=== PATIENT | female | born 1950 | race Caucasian/White ===

== ENCOUNTER 2019-08-18 15:23 | Inpatient (IN) | payer OTHER, MEDICARE ==
--- NOTE | 2019-08-18 16:38 | RAD REPORT ---
EXAM DESCRIPTION: CT - Stone Protocol - 08/18/2019 4:24 pm CLINICAL HISTORY: Abdominal pain. COMPARISON: 2011 TECHNIQUE: Computed axial tomography of the abdomen pelvis was obtained without oral or IV contrast. Lack of IV and oral contrast limits evaluation of solid organs, bowel, and vessels. Coronal reformat shayne images were obtained and reviewed. All CT scans are performed using dose optimization technique as appropriate and may include automated exposure control or mA/KV adjustment according to patient size. FINDINGS: Tiny nonobstructing left renal calculus. 7 millimeter calculus right kidney. No hydronephr osis. A ureteral calculus is not seen. No bladder calculus The liver, spleen, pancreas and adrenals appear grossly normal There is no evidence of diverticulitis. Cholecystectomy Hysterectomy IMPRESSION: Nonobstructing bilateral renal calculi
[2019-08-18 16:41] LABS: Urine Bacteria <20 /HPF (<20); Urine Culture Reflex Order NOT NEEDED; Urine RBC <5 /HPF (NONE SEEN)
[2019-08-18 16:59] LABS: Absolute Lymphocytes (CBC) 2.4 K/uL (0.7-4.9); Basophils % 0.9 % (0-1.3); Hematocrit 26.7 % (36.0-45.0); Lymphocytes % 24.7 % (15.3-44.8); MPV 7.5 fL (7.6-11.3); RBC Red Blood Cell Count 3.09 M/uL (3.86-4.86)
[2019-08-18 17:12] LABS: Urine Blood NEGATIVE (NEG); Urine Glucose NEGATIVE (NEG); Urine Protein NEGATIVE (NEG); Urine Specific Gravity 1.005 (1.005-1.030); Urine pH 5.5 (5.0-7.0)
[2019-08-18 17:12] LABS: Albumin 3.7 g/dL (3.4-5.0); Bilirubin Direct 0.1 mg/dL (0-0.2); Bilirubin Total 0.3 mg/dL (0.2-1.0); Potassium 3.6 mmol/L (3.5-5.1); Protein, Total 7.8 g/dL (6.4-8.2)
--- NOTE | 2019-08-18 17:23 | ER ---
Nurse's Notes [facility] Name: Alicia Miller Age: 69 yrs Sex: Female : 1950 Arrival Date: 08/18/2019 Time: 15:24 Bed 14 Private MD: Diagnosis: Acute Kidney Injury Presentation: 08/18 15:28 Presenting complaint: Patient states: my creatinine and bun are off, i had blood work tw2 done Wednesday, i have been having kidney stones and the doctor is thinking i have blockage. Transition of care: patient was not received from another setting of care. Onset of symptoms was August 18, 2019. Risk Assessment: Do you want to hurt yourself or someone else? Patient reports no desire to harm self or others. Initial Sepsis Screen: Does the patient meet any 2 criteria? No. Patient's initial sepsis screen is negative. Does the patient have a suspected source of infection? No. Patient's initial sepsis screen is negative. Care prior to arrival: None. 15:28 Method Of Arrival: Ambulatory tw2 15:28 Acuity: MARINA 3 tw2 Triage Assessment: 15:33 General: Appears in no apparent distress. Behavior is calm, cooperative, appropriate tw2 for age. Pain: Denies pain. Historical: - Allergies: 15:32 No Known Allergies; tw2 - Home Meds: 15:32 Glipizide Oral [Active]; glucazil otc [Active]; lorazepam 0.5 mg Oral tab [Active]; tw2 milk thistle 500 mg oral cap [Active]; - PMHx: 15:32 fatty liver; Diabetes - NIDDM; Kidney stones; tw2 - PSHx: 15:32 Cholecystectomy; Hysterectomy; b/l mastectomy; lymphectomy; tw2 - Immunization history:: Adult Immunizations. - Social history:: Smoking status: . - Ebola Screening: : Patient denies travel to an Ebola-affected area in the 21 days before illness onset. Screenin:00 Fall Risk IV access (20 points). ca1 17:07 Abuse screen: Denies threats or abuse. Denies injuries from another. Nutritional ca1 screening: No deficits noted. Tuberculosis screening: No symptoms or risk factors identified. Assessment: 16:00 General: Appears in no apparent distress. comfortable, Behavior is calm, cooperative, ca1 appropriate for age. Pain: Denies pain. Neuro: Level of Consciousness is awake, alert, obeys commands, Oriented to person, place, time, situation. Cardiovascular: Heart tones S1 S2 present Capillary refill < 3 seconds Patient's skin is warm and dry. Respiratory: Airway is patent Respiratory effort is even, unlabored, Respiratory pattern is regular, symmetrical, Breath sounds are clear bilaterally. GI: Abdomen is flat, non-distended, Bowel sounds present X 4 quads. Abd is soft and non tender X 4 quads. : No deficits noted. No signs and/or symptoms were reported regarding the genitourinary system. EENT: No deficits noted. No signs and/or symptoms were reported regarding the EENT system. Derm: Skin is intact, is healthy with good turgor, Skin is pink, warm \T\ dry. Musculoskeletal: Circulation, motion, and sensation intact. Capillary refill < 3 seconds, Range of motion: intact in all extremities. 17:08 Reassessment: Patient appears in no apparent distress at this time. Patient and/or ca1 family updated on plan of care and expected duration. Pain level reassessed. Patient is alert, oriented x 3, equal unlabored respirations, skin warm/dry/pink. 17:44 Reassessment: Patient appears in no apparent distress at this time. Patient and/or ca1 family updated on plan of care and expected duration. Pain level reassessed. Patient is alert, oriented x 3, equal unlabored respirations, skin warm/dry/pink. Pending room assignment. 17:55 Reassessment: Dr. Sotelo at bedside. ca1 18:15 Reassessment: Dr. Carlisle at bedside. ca1 18:25 Reassessment: Patient appears in no apparent distress at this time. Patient is alert, ca1 oriented x 3, equal unlabored respirations, skin warm/dry/pink. Vital Signs: 15:28 BP 174 / 93; Pulse 113; Resp 17; Temp 98.1(O); Pulse Ox 100% on R/A; Weight 60.78 kg tw2 (R); Height 5 ft. 0 in. (152.40 cm); Pain 0/10; 17:08 BP 138 / 68; Pulse 98; Resp 17 S; Pulse Ox 100% on R/A; ca1 18:09 BP 157 / 101; Pulse 100; Resp 17 S; Pulse Ox 100% on R/A; ca1 15:28 Body Mass Index 26.17 (60.78 kg, 152.40 cm) tw2 ED Course: 15:24 Patient arrived in ED. as 15:28 Triage completed. tw2 15:33 Arm band placed on. tw2 15:42 Yoel Davis PA is PHCP. [facility] 15:42 Ricci Joseph MD is Attending Physician. jmm 16:00 Patient has correct armband on for positive identification. Placed in gown. Bed in low ca1 position. Call light in reach. Side rails up X 1. Pulse ox on. NIBP on. Warm blanket given. 16:10 Khadijah Boo, RN is Primary Nurse. ca1 16:25 CT Stone Protocol In Process Unspecified. EDMS 16:30 No provider procedures requiring assistance completed. Inserted saline lock: 22 gauge ca1 in right antecubital area, using aseptic technique. 16:45 Initial lab(s) drawn, by labor relations teacher, sent to lab. ca1 17:22 Rusty Carlisle MD is Hospitalizing Provider. [facility] 18:10 Patient admitted, IV remains in place. ca1 Administered Medications: No medications were administered Outcome: 17:22 Decision to Hospitalize by Provider. [facility] 18:10 Admitted to Tele accompanied by tech, via wheelchair, room 404, Report called to ca1 MISAEL Pepe 18:10 Condition: stable 18:10 Instructed on the need for admit. 18:27 Patient left the ED. ca1 Signatures: Dispatcher [employer] EDMS Yoel Davis PA PA jmm Martinez, Amelia as Jyotsna Hall RN RN tw2 Khadijah Boo RN RN ca1
--- NOTE | 2019-08-18 17:23 | EDPHYS ---
Physician Documentation [facility] Name: Alicia Miller Age: 69 yrs Sex: Female : 1950 Arrival Date: 08/18/2019 Time: 15:24 Bed 14 Private MD: ED Physician Ricci Joseph HPI: 08/18 15:45 This 69 yrs old Female presents to ER via Ambulatory with complaints of jmm Abnormal Lab Results. 15:45 The patient complains of pain in the left flank and right flank. The pain radiates to m the abdomen. Onset: The symptoms/episode began/occurred at an unknown time. Modifying factors: The symptoms are alleviated by nothing. the symptoms are aggravated by nothing. Associated signs and symptoms:. This is a 69 year old female with a history of dm, kidney stones that presents to the ED with complaints of flank pain which has been ongoing since July. patient was evaluated by dr schwartz for a ureteral stone. Patient states over the past week having decreased appetite. Was seen by pcp and notified of abnormal labs. Visited with Dr. Rodas whom advised the patient to go to the ED for further evaluation. . Historical: - Allergies: 15:32 No Known Allergies; tw2 - Home Meds: 15:32 Glipizide Oral [Active]; glucazil otc [Active]; lorazepam 0.5 mg Oral tab [Active]; tw2 milk thistle 500 mg oral cap [Active]; - PMHx: 15:32 fatty liver; Diabetes - NIDDM; Kidney stones; tw2 - PSHx: 15:32 Cholecystectomy; Hysterectomy; b/l mastectomy; lymphectomy; tw2 - Immunization history:: Adult Immunizations. - Social history:: Smoking status: . - Ebola Screening: : Patient denies travel to an Ebola-affected area in the 21 days before illness onset. ROS: 15:45 Cardiovascular: Negative for chest pain, palpitations, and edema, Respiratory: Negative jm for shortness of breath, cough, wheezing, and pleuritic chest pain. 15:45 Constitutional: Positive for malaise. 15:45 Abdomen/GI: Positive for abdominal pain, nausea. 15:45 Back: Positive for flank pain. 15:45 All other systems are negative. Exam: 15:45 Head/Face: atraumatic. Eyes: EOMI, no conjunctival erythema appreciated ENT: Moist [facility] Mucus Membranes Neck: Trachea midline, Supple Chest/axilla: Normal chest wall appearance and motion. Cardiovascular: Regular rate and rhythm. No edema appreciated Respiratory: Normal respirations, no respiratory distress appreciated 15:45 Skin: General appearance color normal MS/ Extremity: Moves all extremities, no obvious deformities appreciated, no edema noted to the lower extremities Neuro: Awake and alert, normal gait Psych: Behavior is normal, Mood is normal, Patient is cooperative and pleasant 15:45 Constitutional: The patient appears in no acute distress, alert, awake. 15:45 Abdomen/GI: Inspection: abdomen appears normal, Bowel sounds: normal, Palpation: abdomen is soft and non-tender, in all quadrants. 15:45 Back: CVA tenderness, is absent. Vital Signs: 15:28 BP 174 / 93; Pulse 113; Resp 17; Temp 98.1(O); Pulse Ox 100% on R/A; Weight 60.78 kg tw2 (R); Height 5 ft. 0 in. (152.40 cm); Pain 0/10; 17:08 BP 138 / 68; Pulse 98; Resp 17 S; Pulse Ox 100% on R/A; ca1 18:09 BP 157 / 101; Pulse 100; Resp 17 S; Pulse Ox 100% on R/A; ca1 15:28 Body Mass Index 26.17 (60.78 kg, 152.40 cm) tw2 MDM: 15:45 Patient medically screened. [facility] 17:19 Data reviewed: vital signs, nurses notes. Counseling: I had a detailed discussion with [facility] the patient and/or guardian regarding: the historical points, exam findings, and any diagnostic results supporting the discharge/admit diagnosis, lab results, radiology results, the need for further work-up and treatment in the hospital. ED course: I discussed the patient with Dr. Carlisle whom accepted patient. . 08/18 16:09 Order name: Basic Metabolic Panel; Complete Time: 17:14 [facility] 08/18 16:09 Order name: CBC with Diff; Complete Time: 17:07 [facility] 08/18 16:09 Order name: Creatinine for Radiology; Complete Time: 17:14 [facility] 08/18 16:09 Order name: Hepatic Function; Complete Time: 17:14 [facility] 08/18 16:09 Order name: Lipase; Complete Time: 17:14 [facility] 08/18 16:09 Order name: Urine Microscopic Only; Complete Time: 16:42 [facility] 08/18 16:09 Order name: Urine Culture [facility] 08/18 16:09 Order name: CT Stone Protocol; Complete Time: 16:47 [facility] 08/18 16:29 Order name: Urine Dipstick--Ancillary (enter results); Complete Time: 17:14 eb 08/18 17:36 Order name: Complement C3 [facility] 08/18 17:37 Order name: Complement C4 [facility] 08/18 17:37 Order name: SERA IFA Screen w/Reflex [facility] 08/18 17:37 Order name: C-ANCA Anti-Proteinase 3 [facility] 08/18 17:37 Order name: P-ANCA Anti-Myeloperoxidase Ab [facility] 08/18 16:09 Order name: IV Saline Lock; Complete Time: 16:38 [facility] 08/18 16:09 Order name: Labs collected and sent; Complete Time: 16:38 [facility] 08/18 16:09 Order name: Urine Dipstick-Ancillary (obtain specimen); Complete Time: 16:27 [facility] Administered Medications: No medications were administered Disposition: 08/18/19 17:22 Hospitalization ordered by Rusty Carlisle for Inpatient Admission. Preliminary diagnosis is Acute Kidney Injury. - Bed requested for Telemetry/MedSurg (Inpatient). - Status is Inpatient Admission. ca1 - Condition is Stable. - Problem is new. - Symptoms are unchanged. UTI on Admission? Yes Addendum: 08/22/2019 06:31 Co-signature as Attending Physician, Ricci Joseph MD I agree with the assessment and k dr plan of care. Signatures: Dispatcher [employer] Ricci Santiago MD MD [facility] Yoel Davis PA PA [facility] Jyotsna Hall, RN RN tw2 Kait Quintero Khadijah Boo, RN RN ca1 Corrections: (The following items were deleted from the chart) 08/18 18:02 17:22 Hospitalization Ordered by Rusty Carlisle MD for Inpatient Admission. Preliminary diagnosis is Acute Kidney Injury. Bed requested for Telemetry/MedSurg (Inpatient). Status is Inpatient Admission. Condition is Stable. Problem is new. Symptoms are unchanged. UTI on Admission? Yes. [facility] 18:27 18:02 08/18/2019 17:22 Hospitalization Ordered by Rusty Carlisle MD for Inpatient ca1 Admission. Preliminary diagnosis is Acute Kidney Injury. Bed requested for Telemetry/MedSurg (Inpatient). Status is Inpatient Admission. Condition is Stable. Problem is new. Symptoms are unchanged. UTI on Admission? Yes. eb
[2019-08-18] MEDS ORDERED: NA CHLORIDE 0.9% 1,000 ML IV SCH (18:16)
[2019-08-18] MEDS ORDERED: ONDANSETRON 4 MG/2 ML VIAL IV PRN (18:16)
[2019-08-18] MEDS ORDERED: ACETAMINOPHEN 500 MG TAB PO PRN (18:16)
[2019-08-18 19:22] LABS: Urine Appearance HAZY; Urine Bilirubin NEGATIVE (NEG); Urine Color YELLOW; Urine Glucose NEGATIVE (NEG); Urine Specific Gravity 1.005 (1.005-1.030)
[2019-08-18 19:23] LABS: Urine Bacteria <20 /HPF (<20); Urine Blood NEGATIVE (NEG); Urine Culture Reflex Order REFLEXED; Urine Microscopic Reflex ORDER UMIC; Urine Mucus 2+ /HPF (NONE SEEN); Urine Protein NEGATIVE (NEG); Urine RBC <5 /HPF (NONE SEEN); Urine Urobilinogen 0.2 mg/dL (0.2-1.0); Urine pH 5.5 (5.0-7.0)
[2019-08-18] MEDS: INSULIN -REGULAR HUMAN 50 UNIT/0.5 ML ML SQ SCH (21:00)
--- NOTE | 2019-08-18 21:09 | P.CNS ---
Date of Consult: 08/18/19 Reason for Consult: EDIN Requesting Physician: Rusty Carlisle Chief Complaint: EDIN History of Present Illness: 69 yo WF DM presented to the ER with several days of moderate, persistent BL flank pain in the setting of nephrolithiasis complicated by EDIN. No alleviating factors. No excessive NSAIDs. She last took NSAIDs in July for two days. No difficulty emptying her bladder. Follows with Dr. Howe for CKD. 15:45 This 69 yrs old Female presents to ER via Ambulatory with complaints of Abnormal Lab Results. 15:45 The patient complains of pain in the left flank and right flank. The pain radiates to jmm the abdomen. Onset: The symptoms/episode began/occurred at an unknown time. Modifying factors: The symptoms are alleviated by nothing. the symptoms are aggravated by nothing. Associated signs and symptoms:. This is a 69 year old female with a history of dm, kidney stones that presents to the ED with complaints of flank pain which has been ongoing since July. patient was evaluated by dr schwartz for a ureteral stone. Patient states over the past week having decreased appetite. Was seen by pcp and notified of abnormal labs. Visited with Dr. Rodas whom advised the patient to go to the ED for further evaluation. Allergies No Known Allergies Allergy (Verified 08/19/19 03:38) Home medications list reviewed: Yes Home Medications: Cetirizine HCl [Zyrtec*] 10 mg PO DAILY PRN 08/19/19 Cyclosporine [Restasis] 1 drops EACH EYE DAILY 08/19/19 LORazepam [Ativan*] 0.5 mg PO BEDTIME PRN 08/19/19 Levothyroxine [Synthroid] 0.025 mcg PO DAILY 08/19/19 Milk Thistle Seed Extract [Milk Thistle] 1,000 mg PO DAILY 08/19/19 glipiZIDE [Glipizide] 10 mg PO BID 08/19/19 - Past Medical/Surgical History Diabetic: Yes -: Nephrolithiasis -: Hysterectomy -: Cholecystectomy - Family History Mother Medical History: Other (see notes) Notes: dementia Brother Medical History: Diabetes - Social History CD- Drugs: No Caffeine use: Yes Place of Residence: Home Review of Systems 10-point ROS is otherwise unremarkable Gastrointestinal: Abdominal Pain Physical Examination Temp Pulse Resp BP Pulse Ox 98.4 F 105 H 18 150/80 H 100 08/18/19 19:00 08/18/19 19:00 08/18/19 19:00 08/18/19 19:00 08/18/19 19:00 General: Oriented x3, Cooperative HEENT: Atraumatic, Normocephalic Neck: Supple Respiratory: Clear to auscultation bilaterally Cardiovascular: No edema, Regular rate/rhythm Gastrointestinal: Soft and benign, Non-distended Musculoskeletal: No clubbing, No contractures Integumentary: No rashes, No cyanosis Neurological: Normal speech Lymphatics: No axilla or inguinal lymphadenopathy Laboratory Data (last 24 hrs) 08/18/19 16:50: Creatinine 4.87 H 08/18/19 16:50: WBC 9.8, Hgb 9.4 L, Hct 26.7 L, Plt Count 615 H 08/18/19 16:50: Sodium 139, Potassium 3.6, BUN 59 H, Creatinine 4.83 H, Glucose 138 H, Total Bilirubin 0.3, AST 12 L, ALT 17, Alkaline Phosphatase 126 H, Lipase 440 H Imagings Data: EXAM DESCRIPTION: CT - Stone Protocol - 08/18/2019 4:24 pm CLINICAL HISTORY: Abdominal pain. COMPARISON: 2011 TECHNIQUE: Computed axial tomography of the abdomen pelvis was obtained without oral or IV contrast. Lack of IV and oral contrast limits evaluation of solid organs, bowel, and vessels. Coronal reformatted images were obtained and reviewed. All CT scans are performed using dose optimization technique as appropriate and may include automated exposure control or mA/KV adjustment according to patient size. FINDINGS: Tiny nonobstructing left renal calculus. 7 millimeter calculus right kidney. No hydronephrosis. A ureteral calculus is not seen. No bladder calculus The liver, spleen, pancreas and adrenals appear grossly normal There is no evidence of diverticulitis. Cholecystectomy. Hysterectomy IMPRESSION: Nonobstructing bilateral renal calculi Conclusions/Impression: A/ EDIN of unclear etiology. Chronic nephrolithiasis. DM II with CKD. HTN with CKD. Anemia in chronic illness. P/ Continue current POC and Medications. Change IVF 1/2NS. Give potassium 20meq. Renal labs ordered. No NSAIDs. AM labs. Daily weight. Thank you kindly for the consultation. Case reviewed with Dr. Carlisle.
[2019-08-18] MEDS ORDERED: POTASSIUM CL SA 10 MEQ TAB PO ONE (21:29)
[2019-08-18] MEDS: carvediloL 6.25 MG TAB PO SCH (23:41)
[2019-08-18] MEDS: NACHLORIDE 0.45% 1,000 ML IV SCH (23:43)
[2019-08-19 01:11] VITALS: BMI 26.2
--- NOTE | 2019-08-19 04:21 | HP ---
Date of Admission: 08/18/2019 Primary Care Physician: Rosy Marina. Consultants: Dr. Sotelo with Nephrology. Chief Complaint: Abnormal labs, generalized malaise. Code Status: Full. History Of Present Illness: Patient is a 69-year-old female with past medical history of diabetes, f atty liver disease, history of breast cancer, and kidney stones, who was in her usual state of health until July, had some recent stones, did not have any obstructive uropathy, had progressive genera lized malaise, not having any appetite, not drinking well, was seen by her kidney doctor and was foun d to have abnormal labs with a creatinine of over 4. She was referred to the ER. In the ER, patient 's creatinine was 4.87. WBC count was normal. Hemoglobin was 9.4. CT scan of the abdomen showed 7 mm stone in the right kidney. No hydronephrosis. No ureteral calculus or bladder calculus and a tin y stone on the left side, which is also nonobstructing. Patient was then referred for admission. Past Medical History: Diabetes mellitus type 2, fatty liver disease, breast cancer on the left, stat us post bilateral mastectomy, history of kidney stones. Surgical History: Hysterectomy, cholecystectomy, bilateral mastectomy, lymphadenectomy, , c ataract surgery. Allergies: NO KNOWN DRUG ALLERGIES. Medications: List reviewed. Social History: Patient denies any recent tobacco use or alcohol use. Patient did smoke and drink e xtensively in the past. Patient has a daughter. Independent in her activities of daily living. Sta ys at home. Does not use any assistive ambulatory devices. Family History: No premature coronary artery disease in the family. Father in a motor vehicle accident. Review of Systems: Ten-point system reviewed, negative except as per HPI. Physical Examination: Vital Signs: Blood pressure 174/93, heart rate 113, respirations 17, temperature 98.1, O2 100% on ro om air. General: Awake, alert, oriented x3. Elderly female, in some mild distress, ill appearing. HEENT: Normocephalic, atraumatic. PERRLA. EOMI. Dry mucous membranes. Oropharynx is clear. Poor dentition. Conjunctivae anicteric. Neck: Supple. No JVD. Trachea midline. CV: S1, S2. Sinus tachycardia. Peripheral pulses present. No murmurs. Respiratory: Moving air well bilaterally. No wheezing or stridor. No use of accessory muscles. Gastrointestinal: Abdomen is soft, nontender, nondistended. Positive bowel sounds. No guarding or rigidity. Extremities: No clubbing, cyanosis, or edema. No calf tenderness. Neurologic: Cranial nerves 2 through 12 intact grossly. No focal neurological deficit. Speech is n ormal. Strength is symmetric bilateral upper and lower extremities. Sensation intact to light touch . Skin: No rashes. Normal skin turgor. Psychiatric: Mood is okay. Affect is full. Insight and judgment are good. Laboratory Data: WBC 9.8, H and H 9.4 and 26.7, platelets 615. Sodium 139, potassium 3.6, chloride 104, CO2 of 27, BUN 59, creatinine 4.83, glucose 138, calcium 9.7. UA, 1+ leukocyte esterase, less t wright 5 rbc's, 5-10 wbc's, 5-10 squamous epithelial cells, less than 20 bacteria. Imaging Studies: CT scan of the abdomen shows nonobstructing bilateral renal calculi. Assessment: 69-year-old female with: 1.Acute kidney injury. Creatinine is 4.87, baseline is normal. Electrolytes are within normal limi ts. Does have elevated BUN. No need for emergent dialysis at this time. Patient is making urine. CT scan does not show any obstructive uropathy. Does have bilateral kidney stones, may have passed a recent stone. We will consult Nephrology. Patient was seen by Dr. Howe in our office today. Arnold Sotelo is covering. Will avoid NSAIDs and nephrotoxins. Start on IV fluids and monitor kidney f unction. Patient denied any significant NSAID use, not on metformin. 2.Bilateral kidney stones, nonobstructive. 3.Fatty liver disease. 4.Diabetes mellitus type 2 with hyperglycemia. We will start on sliding scale insulin and monitor b lood glucose levels. We will check hemoglobin A1c. 5.History of breast cancer, status post bilateral mastectomy. 6.Insomnia. Patient does use alprazolam at bedtime. 7.Deep vein thrombosis prophylaxis. Lovenox renally dosed. Plan: Admit patient to Med-Surg, place as inpatient. Length of stay greater than 2 midnights. FABRICE Voice ID: [id number]
[2019-08-19 05:10] LABS: Urine Appearance CLEAR; Urine Bilirubin NEGATIVE (NEG); Urine Blood TRACE (NEG); Urine Color YELLOW; Urine Glucose NEGATIVE (NEG); Urine Protein NEGATIVE (NEG); Urine Urobilinogen 0.2 mg/dL (0.2-1.0)
[2019-08-19 05:18] LABS: UR MICROALBUMIN 1.9 mg/dL (< 1.9)
[2019-08-19 05:50] LABS: Urine Bacteria <20 /HPF (<20); Urine Culture Reflex Order REFLEXED; Urine RBC <5 /HPF (NONE SEEN); Urine Urothelial Cells <5 /HPF (NONE SEEN)
[2019-08-19 06:10] LABS: Absolute Lymphocytes (CBC) 3.1 K/uL (0.7-4.9); Basophils % 0.6 % (0-1.3); Hematocrit 26.9 % (36.0-45.0); Lymphocytes % 26.7 % (15.3-44.8); MPV 7.8 fL (7.6-11.3)
[2019-08-19 06:28] LABS: Albumin 3.6 g/dL (3.4-5.0); Bilirubin Total 0.3 mg/dL (0.2-1.0); Magnesium 2.2 mg/dL (1.8-2.4); Phosphorus 2.7 mg/dL (2.5-4.9); Potassium 3.9 mmol/L (3.5-5.1); Protein, Total 7.5 g/dL (6.4-8.2); Uric Acid 6.8 mg/dL (2.6-6.0)
[2019-08-19] MEDS: INSULIN -REGULAR HUMAN 50 UNIT/0.5 ML ML SQ SCH ×4 (07:30→21:00)
[2019-08-19] MEDS: NACHLORIDE 0.45% 1,000 ML IV SCH ×3 (08:10→16:33)
[2019-08-19] MEDS: carvediloL 6.25 MG TAB PO SCH ×2 (08:12→21:21)
[2019-08-19] MEDS ORDERED: ENOXAPARIN 30 MG/0.3 ML SQ SCH (09:00)
[2019-08-19] MEDS ORDERED: CETIRIZINE HCL 5 MG TABLET PO PRN (11:15)
[2019-08-19] MEDS ORDERED: LORAZEPAM 0.5 MG TABLET PO PRN (11:15)
--- NOTE | 2019-08-19 15:35 | PN ---
Date of Progress Note: 08/19/2019 Subjective: Patient seen and examined. Chart reviewed and case discussed with RN and Dr. Sotelo as well as Dr. Howe. Patient is doing better this morning, still not much of an appetite. No vomi ting. Medications reviewed. Physical Examination: Vital Signs: Temperature 96.9, heart rate 84, blood pressure 118/67, respirations 16, O2 98% on room air. General: Awake, alert and oriented x3, not in any acute distress. Elderly female, somewhat il l appearing. CV: S1, S2. Regular rate and rhythm. Peripheral pulses present. Respiratory: Moving air well bilaterally. No wheezing or stridor. No use of accessory muscles. Gas trointestinal: Abdomen is soft, nontender, nondistended. Positive bowel sounds. No guarding or rig idity. Extremities: No clubbing, cyanosis, or edema. Neurologic: Nonfocal. Laboratory Data: Sodium 140, potassium 3.9, chloride 106, CO2 of 26, BUN 60, creatinine 4.72, glucos e 82. Hemoglobin A1c is 5.9%. Uric acid is 6.8, calcium 9, phosphorus 2.7, magnesium 2.2, AST 10, A LT 17, alkaline phosphatase 120. WBC 11.7, H and H 9.5 and 26.9, platelets 575. Immunology panel is pending. Urine culture growing out mixed landry. Assessment And Plan: A 69-year-old female with: 1.Acute kidney injury, not significantly improved from yesterday. We will continue with IV fluids, unclear etiology, may be related to acute tubular necrosis from decreased oral intake. Workup is pen ding. 2.Bilateral kidney stones, nonobstructive. 3.Fatty liver disease. 4.Diabetes mellitus type 2 with hyperglycemia. Hemoglobin A1c is 5.9%. We will continue to monitor sliding scale. Monitor glucose levels and continue sliding scale insulin. 5.History of breast cancer, status post bilateral mastectomy. 6.Insomnia. Continue alprazolam p.r.n. at bedtime. 7.Deep venous thrombosis prophylaxis with Lovenox, renally dosed. SA/MODL Voice ID: [id number] Report ID: [id number]
--- NOTE | 2019-08-19 20:49 | P.PN ---
Date of Service: 08/19/19 Vital Signs Temp Pulse Resp BP Pulse Ox 97.0 F 86 17 124/62 100 08/19/19 16:00 08/19/19 16:00 08/19/19 16:00 08/19/19 16:00 08/19/19 16:00 Medications Acetaminophen (Tylenol -Extra Strength) 500 mg PO Q4HP PRN PRN Reason: Pain scale 2-4 (Mild) Stop: 09/17/19 18:17 Carvedilol (Coreg) 6.25 mg PO BID [facility] Stop: 09/17/19 22:01 Last Admin: 08/19/19 08:12 Dose: 6.25 mg Cetirizine HCl (Zyrtec) 10 mg PO DAILY PRN PRN Reason: ALLERGIES Stop: 09/18/19 11:16 Enoxaparin Sodium (Lovenox 30 Mg Inj) 30 mg SQ DAILY [facility] Stop: 09/18/19 09:01 Last Admin: 08/19/19 08:10 Dose: 30 mg Home Med (Cyclosporine [Restasis]) 1 drops EACH EYE DAILY [facility] Stop: 09/19/19 09:01 Sodium Chloride (Sodium Chloride 0.45%) 1,000 mls @ 125 mls/hr IV .Q8H [facility] Stop: 09/17/19 22:01 Last Admin: 08/19/19 16:33 Dose: 1,000 mls Insulin Human Regular (Novolin -R) 0 unit SQ ACHS [facility]; Protocol Stop: 09/17/19 21:01 Last Admin: 08/19/19 16:30 Dose: Not Given Levothyroxine Sodium (Synthroid) 0.05 mg PO DAILYAC [facility] Stop: 09/19/19 06:31 Lorazepam (Ativan) 0.5 mg PO BEDTIME PRN PRN Reason: sleep Stop: 09/18/19 11:16 Ondansetron HCl (Zofran) 4 mg IV Q4H PRN PRN Reason: NAUSEA / VOMITING Stop: 09/17/19 18:17 Sodium Chloride (Normal Saline Flush) 10 ml IV BID [facility] Stop: 09/17/19 21:01 Last Admin: 08/19/19 08:11 Dose: 10 ml Microbiology Results 08/18/19 16:24 Clean Catch Urine [place] Count - Preliminary <10,000 CFU/ML. 08/18/19 16:24 Clean Catch Urine - Preliminary MIXED [place]. Assessment/ Plan: Nephrology Feeling better today. Still with some abdominal twinges. CPS stable without CP or SOB. No acute events overnight. Vitals, medications, blood work and imaging reviewed in the chart. General: Oriented x3, Cooperative HEENT: Atraumatic, Normocephalic Neck: Supple Respiratory: Clear to auscultation bilaterally Cardiovascular: No edema, Regular rate/rhythm Gastrointestinal: Soft and benign, Non-distended Musculoskeletal: No clubbing, No contractures Integumentary: No rashes, No cyanosis Neurological: Normal speech Lymphatics: No axilla or inguinal lymphadenopathy Laboratory Data (last 24 hrs) 08/18/19 16:50: Creatinine 4.87 H 08/18/19 16:50: WBC 9.8, Hgb 9.4 L, Hct 26.7 L, Plt Count 615 H 08/18/19 16:50: Sodium 139, Potassium 3.6, BUN 59 H, Creatinine 4.83 H, Glucose 138 H, Total Bilirubin 0.3, AST 12 L, ALT 17, Alkaline Phosphatase 126 H, Lipase 440 H Imagings Data: EXAM DESCRIPTION: CT - Stone Protocol - 08/18/2019 4:24 pm CLINICAL HISTORY: Abdominal pain. COMPARISON: 2011 TECHNIQUE: Computed axial tomography of the abdomen pelvis was obtained without oral or IV contrast. Lack of IV and oral contrast limits evaluation of solid organs, bowel, and vessels. Coronal reformatted images were obtained and reviewed. All CT scans are performed using dose optimization technique as appropriate and may include automated exposure control or mA/KV adjustment according to patient size. FINDINGS: Tiny nonobstructing left renal calculus. 7 millimeter calculus right kidney. No hydronephrosis. A ureteral calculus is not seen. No bladder calculus The liver, spleen, pancreas and adrenals appear grossly normal There is no evidence of diverticulitis. Cholecystectomy. Hysterectomy IMPRESSION: Nonobstructing bilateral renal calculi Conclusions/Impression: A/ EDIN of unclear etiology. FENa consistent with ATN. Chronic nephrolithiasis. DM II with CKD. HTN with CKD. Anemia in chronic illness. P/ Continue current POC and Medications. Continue IVF 1/2NS. Renal labs pending. No NSAIDs. AM labs. Daily weight.
[2019-08-20] MEDS: NACHLORIDE 0.45% 1,000 ML IV SCH ×3 (00:56→13:59)
[2019-08-20 05:28] LABS: Absolute Lymphocytes (CBC) 2.7 K/uL (0.7-4.9); Basophils % 0.7 % (0-1.3); Lymphocytes % 29.9 % (15.3-44.8); MPV 7.3 fL (7.6-11.3); RBC Red Blood Cell Count 2.72 M/uL (3.86-4.86)
[2019-08-20 05:46] LABS: Bilirubin Total 0.3 mg/dL (0.2-1.0); Protein, Total 6.3 g/dL (6.4-8.2)
[2019-08-20 05:59] LABS: Uric Acid 6.3 mg/dL (2.6-6.0)
[2019-08-20] MEDS ORDERED: LEVOTHYROXINE SOD 0.05 MG TABLET PO SCH (06:30)
[2019-08-20] MEDS: INSULIN -REGULAR HUMAN 50 UNIT/0.5 ML ML SQ SCH ×2 (07:30→11:28)
[2019-08-20 07:41] VITALS: O2SAT 97
[2019-08-20] MEDS: carvediloL 6.25 MG TAB PO SCH (08:36)
[2019-08-20] MEDS ORDERED: CYCLOSPORINE EACH EYE SCH (09:00)
[2019-08-20 12:39] VITALS: BP 122/61; TEMP 97.4
[2019-08-20] MEDS ORDERED: EPOETIN ALFA 20,000 UNIT/1 ML VIAL SQ SCH (13:15)
--- NOTE | 2019-08-20 13:38 | P.PN ---
Date of Service: 08/20/19 Vital Signs Temp Pulse Resp BP Pulse Ox 97.4 F 87 17 122/61 98 08/20/19 12:00 08/20/19 12:00 08/20/19 12:00 08/20/19 12:00 08/20/19 12:00 Medications Acetaminophen (Tylenol -Extra Strength) 500 mg PO Q4HP PRN PRN Reason: Pain scale 2-4 (Mild) Stop: 09/17/19 18:17 Carvedilol (Coreg) 6.25 mg PO BID [facility] Stop: 09/17/19 22:01 Last Admin: 08/20/19 08:36 Dose: 6.25 mg Cetirizine HCl (Zyrtec) 10 mg PO DAILY PRN PRN Reason: ALLERGIES Stop: 09/18/19 11:16 Enoxaparin Sodium (Lovenox 30 Mg Inj) 30 mg SQ DAILY [facility] Stop: 09/18/19 09:01 Last Admin: 08/19/19 08:10 Dose: 30 mg Epoetin Juwan (Procrit) 20,000 unit SQ 1X [facility] Stop: 09/19/19 13:16 Home Med (Cyclosporine [Restasis]) 1 drops EACH EYE DAILY [facility] Stop: 09/19/19 09:01 Sodium Chloride (Sodium Chloride 0.45%) 1,000 mls @ 125 mls/hr IV .Q8H [facility] Stop: 09/17/19 22:01 Last Admin: 08/20/19 08:35 Dose: 1,000 mls Insulin Human Regular (Novolin -R) 0 unit SQ ACHS [facility]; Protocol Stop: 09/17/19 21:01 Last Admin: 08/20/19 11:28 Dose: Not Given Levothyroxine Sodium (Synthroid) 0.05 mg PO DAILYAC [facility] Stop: 09/19/19 06:31 Last Admin: 08/20/19 06:26 Dose: 0.05 mg Lorazepam (Ativan) 0.5 mg PO BEDTIME PRN PRN Reason: sleep Stop: 09/18/19 11:16 Last Admin: 08/19/19 21:20 Dose: 0.5 mg Ondansetron HCl (Zofran) 4 mg IV Q4H PRN PRN Reason: NAUSEA / VOMITING Stop: 09/17/19 18:17 Sodium Chloride (Normal Saline Flush) 10 ml IV BID [facility] Stop: 09/17/19 21:01 Last Admin: 08/20/19 08:36 Dose: Not Given Microbiology Results 08/18/19 16:24 Clean Catch Urine [place] Count - Final <10,000 CFU/ML. 08/18/19 16:24 Clean Catch Urine - Final MIXED [place]. Assessment/ Plan: Nephrology Doing well. CPS stable without CP or SOB. Good urine output. No acute events overnight. Vitals, medications, blood work and imaging reviewed in the chart. General: Oriented x3, Cooperative HEENT: Atraumatic, Normocephalic Neck: Supple Respiratory: Clear to auscultation bilaterally Cardiovascular: No edema, Regular rate/rhythm Gastrointestinal: Soft and benign, Non-distended Musculoskeletal: No clubbing, No contractures Integumentary: No rashes, No cyanosis Neurological: Normal speech Lymphatics: No axilla or inguinal lymphadenopathy Laboratory Data (last 24 hrs) 08/18/19 16:50: Creatinine 4.87 H 08/18/19 16:50: WBC 9.8, Hgb 9.4 L, Hct 26.7 L, Plt Count 615 H 08/18/19 16:50: Sodium 139, Potassium 3.6, BUN 59 H, Creatinine 4.83 H, Glucose 138 H, Total Bilirubin 0.3, AST 12 L, ALT 17, Alkaline Phosphatase 126 H, Lipase 440 H Imagings Data: EXAM DESCRIPTION: CT - Stone Protocol - 08/18/2019 4:24 pm CLINICAL HISTORY: Abdominal pain. COMPARISON: 2011 TECHNIQUE: Computed axial tomography of the abdomen pelvis was obtained without oral or IV contrast. Lack of IV and oral contrast limits evaluation of solid organs, bowel, and vessels. Coronal reformatted images were obtained and reviewed. All CT scans are performed using dose optimization technique as appropriate and may include automated exposure control or mA/KV adjustment according to patient size. FINDINGS: Tiny nonobstructing left renal calculus. 7 millimeter calculus right kidney. No hydronephrosis. A ureteral calculus is not seen. No bladder calculus The liver, spleen, pancreas and adrenals appear grossly normal There is no evidence of diverticulitis. Cholecystectomy. Hysterectomy IMPRESSION: Nonobstructing bilateral renal calculi Conclusions/Impression: A/ EDIN of unclear etiology. FENa consistent with ATN. Chronic nephrolithiasis. DM II with CKD. HTN with CKD. Anemia in chronic illness. P/ Continue current POC and Medications. Continue IVF 1/2NS. Give a dose of Procrit today. Renal labs pending. No NSAIDs. AM labs PRN. Daily weight. Case reviewed with Dr. Carlisle, the daughter and the patient. Plan for discharge today. Will follow up with Dr. Howe in approximately one week with blood work. Restart home medications. Send home with Coreg that was initiated in the hospital. Maintain good hydration and avoid all NSAIDs.
--- NOTE | 2019-08-20 15:52 | PN ---
Date of Progress Note: 08/20/2019 Subjective: Patient is seen and examined, chart was reviewed, and case was discussed with RN. No ac yennifer events overnight. Patient does report urinary frequency. She has history of incontinence. Medication List: Reviewed. Physical Examination: Vital Signs: Temperature 97.1, heart rate 86, blood pressure 129/62, respirations 17, O2 99% on room air. General: Awake, alert, oriented x3. Elderly female, not in any acute distress. CV: S1, S2. Regular rate and rhythm. Peripheral pulses present. Respiratory: Moving air well bilaterally. No wheezing or stridor. Gastrointestinal: Abdomen is sof t, nontender, nondistended. Positive bowel sounds. Extremities: No clubbing, cyanosis, or edema. Neurologic: Nonfocal. Laboratory Data: Sodium 139, potassium 4, chloride 109, CO2 23, BUN 58, creatinine 4.62, glucose 107 , uric acid 6.3, calcium 8.6. Lipase 368. Protein electrophoresis is pending. WBC 9.2, H and H 8.3 and 24, platelets 489. Urine culture: Mixed landry. Assessment: A 69-year-old female with: 1.Acute kidney injury. Creatinine is still above 4, likely due to acute tubular necrosis. Apprecia te Dr. Sotelo's input. Workup is still pending. May need biopsies if workup is negative. Electrol ytes are stable. No significant fluid retention. Doubt need for emergent dialysis. 2.Bilateral nephrolithiasis, nonobstructive. 3.Fatty liver disease. 4.Diabetes mellitus type 2 with hyperglycemia, stable. We will continue to monitor blood glucose le vels. Continue sliding scale insulin. 5.History of breast cancer, status post bilateral mastectomy. 6.Insomnia, on benzodiazepines p.r.n. at bedtime. 7.Elevated uric acid level. 8.Deep venous thrombosis prophylaxis with Lovenox, renally dosed. Plan: Follow up with immunology studies. Protein electrophoresis. Continue DVT prophylaxis. Sanam nue IV fluids. Possible renal biopsy if workup is negative. We will discuss further with Nephrology . SA/MODL Voice ID: [id number] Report ID: [id number]
[2019-08-22 20:14] LABS: Immunoglobulin A 169 mg/dL (20-320); Immunoglobulin G 928 mg/dL (600-1540); Immunoglobulin M 55 mg/dL (50-300)
[2019-08-23 00:16] LABS: Alpha-1-Globulins 0.4 g/dL (0.2-0.3); Alpha-2-Globulins 0.8 g/dL (0.5-0.9); Gamma Globulins 0.8 g/dL (0.8-1.7); INTERPRETATION REPORT
== END 2019-08-20 15:37 | disposition home or self-care (01) | DRG 682 ==
LOC: ER 15:23 → ERHOLD 17:31 → 4TH 18:16
PROVIDERS: ADMIT Family Medicine; ATTEND Family Medicine
DX: I12.9 Hypertensive chronic kidney disease with stage 1 through stage 4 chronic kidney disease, or unspecified chronic kidney disease (principal); N17.0 Acute kidney failure with tubular necrosis; N20.0 Calculus of kidney; K76.0 Fatty (change of) liver, not elsewhere classified; E11.65 Type 2 diabetes mellitus with hyperglycemia; Z85.3 Personal history of malignant neoplasm of breast; G47.00 Insomnia, unspecified; E11.22 Type 2 diabetes mellitus with diabetic chronic kidney disease; N18.9 Chronic kidney disease, unspecified
CPT/HCPCS: 36415; 74176; 76377; 80048; 80053; 80076; 81001; 81003; 81015; 82043; 82570; 82784; 82947; 83036; 83520; 83690; 83735; 84100; 84165; 84300; 84550; 85025; 86021; 86038; 86160; 86334; 87086; 87088; 94760; 99285; J1650; J7030; Q4081

== ENCOUNTER 2020-08-21 05:48 | Day surgery (SDC) | payer OTHER, MEDICARE ==
[2020-08-14 09:53] LABS: Absolute Lymphocytes (CBC) 2.4 K/uL (0.7-4.9); Basophils % 0.8 % (0-1.3); Hematocrit 36.4 % (36.0-45.0); Lymphocytes % 27.8 % (15.3-44.8); MPV 7.6 fL (7.6-11.3); RBC Red Blood Cell Count 4.07 M/uL (3.86-4.86)
[2020-08-14 09:56] LABS: Protime INR 0.97
[2020-08-14 10:06] LABS: Potassium 4.3 mmol/L (3.5-5.1)
--- NOTE | 2020-08-14 10:13 | RAD REPORT ---
EXAM DESCRIPTION: RAD - Chest Pa And Lat (2 Views) - 08/14/2020 9:57 am CLINICAL HISTORY: PRE OP Chest pain. COMPARISON: Abdomen 1 View (KUB) dated 07/06/2019; Abdomen 1 View (KUB) dated 02/07/2018; Abdomen 1 Vie w (KUB) dated 02/08/2017; Abdomen 1 View (KUB) dated 02/03/2017 FINDINGS: The lungs are clear. The heart is normal in size. No displaced fractures. Left axillary no omaira dissection clips. Cholecystectomy clips. IMPRESSION: No acute or concerning finding suspected.
--- OUTSIDE RECORDS SUMMARY | 2020-08-21 05:51 | XMS REPORT | Continuity of Care Document ---
:1950 Author Organization [facility] Care Team Providers Name Role Phone [facility] Unavailable Un available Problems Problem Status Onset Classification Date Comments Sourc e Date Reported Carpal tunnel Active Problem 03/10/2020 Misch er syndrome Neuro (disorder) Medications No Data Provided for This Section Allergies, Adverse Reactions, Alerts Substance Category Reaction Severity Reaction Status Date Comments S ource type Reported sulfa drugs Assertion Drug Active Mi liliana allergy Neuro codeine Assertion Drug Active Mische r allergy Neuro Cipro Assertion Drug Active Mische r allergy Neuro Flagyl Assertion Drug Active Mische r allergy Neuro Ceclor Assertion Drug Active Mische r allergy Neuro Immunizations No Data Provided for This Section Results No Data Provided for This Section Pathology Reports No Data Provided for This Section Diagnostic Reports No Data Provided for This Section Consultation Notes No Data Provided for This Section Discharge Summaries No Data Provided for This Section History and Physicals No Data Provided for This Section Vital Signs No Data Provided for This Section Encounters Location Location Encounter Encounter Reason Attending ADM MO Stat Source Details Type Number For Provider Date Date Visit Outpatient [id number] Robin 03/08 Active [facility] [place] [facility] Outpatient [id number] [place] 03/08 03/09 [facility] Neurology [place] /2019 Neur o [place] Procedures No Data Provided for This Section Assessment and Plan No Data Provided for This Section Plan of Care No Data Provided for This Section Social History Social History Date Source No data available for this 03/09/2020 [facility] section Family History No Data Provided for This Section Advance Directives No Data Provided for This Section Functional Status No Data Provided for This Section
--- OUTSIDE RECORDS SUMMARY | 2020-08-21 05:51 | XMS REPORT ---
:[address] [facility] Address [address], [facility] [address] [place] [address] Care Team Providers Name Role Phone Issac Unavailable [phone] PROBLEMS Type Condition ICD9-CM [id number] Onset Condition SNOMED Code Notes Code Code Dates Status Problem Nontraumatic M75.121 Active 7913506471204055 complete tear of right rotator cuff ALLERGIES Allergen (clinical drug Drug/Non Drug Allergy Reaction Allergy Type Onset Date Status ingredient) documented on EMR morphine Morphine Sulfate([facility] Unknown Drug Allergy Ac tive Code:[address]-61) ENCOUNTERS from 1950 to 2020-07-11 Encounter Location Date Provider Diagnosis [facility] [address] Jul, Iftikhar Davenport [facility] [address] [place], [place] M25.511 ; [id number] Nontraumatic co mplete tear of right r otator cuff M75.121 ; Bicipital tendi nitis of right should er M75.21 and Impingement syn drome of right should er M75.41 IMMUNIZATIONS No Information SOCIAL HISTORY Tobacco Use: Social History Observation Description Date Details (start date - stop date) Never Smoker Sex Assigned At : Social History Observation Description Sex Assigned At Unknown Alcohol Screen Question Answer Notes Did you have a drink containing alcohol in the past Yes year? Points 1 Interpretation Negative How often did you have 6 or more drinks on one Never (0 poin ts) occasion in the past year? How many drinks did you have on a typical day when 1 or 2 (0 points) you were drinking in the past year? How often did you have a drink containing alcohol in Monthly or less (1 point) the past year? Tobacco Use/Smoking Question Answer Notes Are you a never smoker Additional Findings: Tobacco Non-User Current non-smoker REASON FOR REFERRAL No Information VITAL SIGNS Height 60 in Jul, Weight 144.8 lbs Jul, BMI 28.28 kg/m2 Jul, Blood pressure systolic 162 mm Hg Jul, Blood pressure diastolic 94 mm Hg Jul, MEDICATIONS Medication SIG (Take, Route, Start Date End Date Status Frequency, Duration) Selenium Active Ondansetron Not-Taking Restasis Active Tamsulosin HCl Not-Taking Lutein Active Feosol Active Lorazepam Not-Taking Magnesia Active GlipiZIDE Active Levothyroxine Sodium Not-Fletcher ing Alive Once Daily Womens 50+ Active Milk Thistle Active Carvedilol Not-Taking PROCEDURES No Information RESULTS No Results REASON FOR VISIT NEW PT: RT SHOULDER PAIN MEDICAL (GENERAL) HISTORY Type Description Date Medical History DM Medical History HTN Medical History HLD Medical History renal failure Medical History HT Medical History hx of breast cancer Surgical History appendectomy Surgical History c sections Surgical History left foot Surgical History gallbbladder Surgical History hystrectomy Surgical History breast surgery cancer Goals Section No Information Health Concerns No Information MEDICAL EQUIPMENT No Information MENTAL STATUS No Information FUNCTIONAL STATUS No Information ASSESSMENTS Encounter Date Diagnosis Notes Jul, Impingement syndrome of right shoulder ( ICD-10 - M75.41) Jul, Bicipital tendinitis of right shoulder ( ICD-10 - M75.21) Jul, Nontraumatic complete tear of right rota tor cuff (ICD-10 - M75.121) Jul, Pain in joint of right shoulder (ICD-10 - M25.511) PLAN OF TREATMENT Treatment Notes Assessment Notes Clinical Notes Nontraumatic complete tear of I discussed with the patient a t right rotator cuff length her diagnosis and treatment plan and she expressed understanding. We discussed both operative and nonoperative treatment. She has failed conservative treatment measures including corticosteroid injections and physical therapy. Given her pain and difficulty with ADLs, we will proceed with right shoulder arthroscopic rotator cuff repair with possible biceps tenotomy and subacromial decompression. I discussed with the patient risks and benefits associated with the procedure at length as well as postoperative rehabilitation and she expressed understanding. We will schedule the surgery in mid August per her request. Treatment Notes Test Name Order Date X-RAY EXAM SHOULDER 2 VIEWS ([id number]) 2020-07-11 Next Appt Details 4 Weeks Reason: Insurance Providers Payer Name Payer Address Payer Insured Patient Coverage Cover age Phone Name Relationship to Start Date End Date Insured MEDICARE Attn Part B [id number] Alicia Miller [facility] Claims [address] [facility] [address] [facility] [address] [phone] Alicia Miller [place] [address] K [phone]
--- OUTSIDE RECORDS SUMMARY | 2020-08-21 05:51 | XMS REPORT | Continuity of Care Document ---
:1950 Author Organization [facility] t Address [facility] [address]e [address] [place] [address] Care Team Providers Name Role Phone Sy [place] Attending Clinician Problems Condition Condition Condition Status Onset Resolution Last Treating Co mments Source Name Details Category Date Date Treatment Clinician Date Carpal Problem Active 2020-03-10 Memor ia tunnel 23:53:45 l syndrome Carpal Federico n (disorder) tunnel syndrome (disorder) Active Problem 03/10/2020 [facility] Allergies, Adverse Reactions, Alerts Allergy Allergy Status Severity Reaction(s) Onset Inactive Treating Comm ents Source Name Type Date Date Clinician sulfa sulfa Active [facility] drugs l [place] codeine codeine Active [facility] [place] Cipro Cipro Active [facility] [place] Flagyl Flagyl Active [facility]oria [facility] [place] Ceclor Ceclor Active [facility]oria [facility] [place] Social History Social Habit Start Date Stop Date Quantity Comments Source Social History 2020-03-09 2020-03-09 [facility] camacho 04:59:59 04:59:59 Medications This patient has no known medications. Procedures This patient has no known procedures. Encounters Start End Encounter Admission Attending Care Care Encounter Source Date/Time Date/Time Type Type Clinicians Facility Department ID 2020-08-13 2020-08-13 Outpatient [facility] [id number] [facility] 2020-07-08 2020-07-08 Outpatient [facility] [id number] [facility] 2020-03-08 2020-03-08 [place] [facility] [id number] 08:15:00 23:59:59 Robin 00 Sy Results This patient has no known results.
--- OUTSIDE RECORDS SUMMARY | 2020-08-21 05:51 | XMS REPORT ---
:1950 Author Organization [facility] Address [address], [facility] [address] [place] [address] Care Team Providers Name Role Phone Issac Unavailable [phone] PROBLEMS Type Condition ICD9-CM [id number] Onset Condition SNOMED Code Notes Code Code Dates Status Problem Nontraumatic M75.121 Active [id number] complete tear of right rotator cuff ALLERGIES Allergen (clinical drug Drug/Non Drug Allergy Reaction Allergy Type Onset Date Status ingredient) documented on EMR morphine Morphine Sulfate([facility] Unknown Drug Allergy Ac tive Code:[address]-74) ENCOUNTERS from 1950 to 2020-08-14 Encounter Location Date Provider Diagnosis [facility] [address] Aug, Iftikhar Davenport [facility] [address] [place], [place] M25.[address] ; [id number] Nontraumatic co mplete tear of right r [...] No Information VITAL SIGNS Height 60 in Aug, Weight 144 lbs Aug, Temperature 97.3 degrees Fahrenheit Aug, BMI 28.12 kg/m2 Aug, Blood pressure systolic 122 mm Hg Aug, Blood pressure diastolic 82 mm Hg Aug, MEDICATIONS Medication SIG (Take, Route, Start Date End Date Status Frequency, Duration) Restasis Active Levothyroxine Sodium Not-Fletcher ing GlipiZIDE Active Carvedilol Not-Taking Ondansetron Not-Taking Selenium Active Milk Thistle Active Lorazepam Not-Taking Feosol Active Lutein Active Magnesia Active Tamsulosin HCl Not-Taking Chlordiazepoxide-Clidinium A ctive Alive Once Daily Womens 50+ Active PROCEDURES No Information RESULTS No Results REASON FOR VISIT F/U RT SHOULDER - DISCUSS SURGEY 08/14/2020. MEDICAL (GENERAL) HISTORY Type Description Date Medical [...] No Information ASSESSMENTS Encounter Date Diagnosis Notes Aug, Impingement syndrome of right shoulder ( ICD-10 - M75.41) Aug, Bicipital tendinitis of right shoulder ( ICD-10 - M75.21) Aug, Nontraumatic complete tear of right rota tor cuff (ICD-10 - M75.121) Aug, Pain in joint of right shoulder (ICD-10 [...] rehabilitation and she expressed understanding. We will proceed with surgery next week. She will followup one week postop. Next Appt Details 1 week postop Reason: Provider Name:Iftikhar Davenport, 2020-08-26 0 1:00:00 PM, [address], [address], [place], [address], Insurance Providers Payer Name Payer Address Payer Insured Patient Coverage Cover age Phone Name Relationship to Start Date End Date Insured MEDICARE Attn Part B [id number] Alicia Miller [facility] Claims [address] [facility] [address] AAR [address] [phone] Alicia Miller [facility] [id number] [phone]
--- OUTSIDE RECORDS SUMMARY | 2020-08-21 06:08 | XMS REPORT | Continuity of Care Document ---
:1950 Author Organization [facility] Care Team Providers Name Role Phone [facility] Unavailable Un available Problems Problem Status Onset [...] Number For Provider Date Date Visit Outpatient [id number] Robin 03/08 Active [facility] [place] MNA Outpatient [id number] [place] 03/08 03/09 [facility] Neurology [place] /2019 Neur o [place] Procedures No Data Provided for This Section [...]
--- OUTSIDE RECORDS SUMMARY | 2020-08-21 06:08 | XMS REPORT | Continuity of Care Document ---
:1950 Author Organization [facility] t Address [facility] [address] [place] [address] Care Team Providers Name Role Phone Sy [...] l [place] Flagyl Flagyl Active [facility] [place] Ceclor Ceclor Active [facility] [place] Social History Social Habit Start Date Stop Date Quantity Comments Source Social History 2020-03-09 2020-03-[address] [facility] camacho 04:59:59 04:59:59 Medications This patient has no known medications. Procedures This patient has no known procedures. Encounters Start End Encounter Admission Attending Care Care Encounter Source Date/Time Date/Time Type Type Clinicians Facility Department ID 2020-08-13 2020-08-13 Outpatient [facility] [id number] [facility] 2020-07-08 2020-07-08 Outpatient [facility] [id number] [facility] 2020-03-08 2020-03-[address] [place] [facility] [id number] 08:15:00 23:59:59 Robin 00 Sy Results This patient has no known results.
[2020-08-21] MEDS ORDERED: ROPLVACAINE HCL 40 ML ONE (06:30)
[2020-08-21] MEDS ORDERED: NS 0.9% VIAL 10 ML ONE ×3 (06:30→09:05)
[2020-08-21] MEDS ORDERED: LIDOCAINE 2% MPF 5 ML VIAL ONE ×2 (06:30→08:32)
[2020-08-21] MEDS ORDERED: dexAMETHasone 10 MG/ML VIAL ONE ×2 (06:30→08:32)
[2020-08-21] MEDS ORDERED: NA CHLORIDE 0.9% 1,000 ML ONE (06:41)
[2020-08-21] MEDS ORDERED: CEFAZOLIN/SWI 1gm 1 GM/10 ML SYR ONE (06:41)
[2020-08-21] MEDS ORDERED: EPINEPHRINE/PF 1 MG/ML AMP ONE (07:00)
[2020-08-21] MEDS ORDERED: Ringers Lactate 1,000 ML IV ONE (08:28)
[2020-08-21] MEDS ORDERED: MIDAZOLAM HCL 2 MG/2 ML INJ ONE (08:32)
[2020-08-21] MEDS ORDERED: propofoL 200 MG/20 ML VIAL IV ONE (08:32)
[2020-08-21] MEDS ORDERED: ROCURONIUM 50 MG/5 ML VIAL IV ONE (08:32)
[2020-08-21] MEDS ORDERED: EPHEDRINE SULF 50 MG/ML VIAL ONE (08:32)
[2020-08-21] MEDS ORDERED: Phenylephrine HCl 10 MG/ML 1 ML VIAL ONE (08:32)
[2020-08-21] MEDS ORDERED: ONDANSETRON 4 MG/2 ML VIAL ONE (08:32)
[2020-08-21] MEDS ORDERED: FENTANYL CITR 100 MCG/2 ML ONE (08:32)
[2020-08-21] MEDS ORDERED: KETOROLAC 30 MG/ML INJ ONE (08:32)
--- NOTE | 2020-08-21 09:34 | P.BOP ---
Preoperative diagnosis: right rotator cuff tear, impingement syndrome, biceps tendinitis Postoperative diagnosis: same, right shoulder SLAP tear Primary procedure: right shoulder arthroscopic rotator cuff repair Secondary procedure: right shoulder arthroscopic SLAP debridement with biceps tenotomy Other procedure(s): right shoulder arthroscopic subacromial decompression Legal Secretary Receptionist: NONE,NONE Estimated blood loss: 5 cc Specimen: none Findings: see dictation Anesthesia: General Complications: None Implants: 1- 5.5 mm arthrex corkscrew, 2- 4.75 mm arthrex swivelocks Fluids & blood products: per anesthesia record Transferred to: Recovery Room Condition: Good
[2020-08-21] MEDS: MEPERIDINE HCL 25 MG/ML SYR ONE ×2 (09:35→09:45)
[2020-08-21] MEDS ORDERED: DIPHENHYDRAMINE 50 MG/ML VIAL ONE (10:05)
[2020-08-21] MEDS: LABETALOL 20 MG/4ML SYRINGE IV ONE ×4 (10:10→11:45)
--- NOTE | 2020-08-21 10:15 | RAD REPORT ---
EXAM DESCRIPTION: RAD - Shoulder 1 View - 08/21/2020 10:08 am FINDINGS: Single postoperative AP view of the shoulder was obtained. No fracture or dislocation. AC joint degenerative change present with inferiorly directed spurring. No suspicious or unexpected finding.
[2020-08-21] MEDS ORDERED: LABETALOL 20 MG/4ML SYRINGE IV ONE (11:43)
[2020-08-21] MEDS ORDERED: HYDROCODONE/APAP 7.5/325 MG TAB ONE (12:55)
[2020-08-21 14:26] VITALS: BP 154/72; TEMP 97.9; O2SAT 97
--- NOTE | 2020-08-26 19:00 | OP ---
Date of Procedure: 08/21/2020 Surgeon: Iftikhar Davenport MD Preoperative Diagnoses: 1.Right shoulder rotator cuff tear. 2.Right shoulder impingement syndrome. 3.Right shoulder bicipital tenosynovitis. Postoperative Diagnoses: 1.Right shoulder rotator cuff tear. 2.Right shoulder impingement syndrome. 3.Right shoulder bicipital tenosynovitis. 4.Right shoulder SLAP tear. Procedure Performed: 1.Right shoulder arthroscopic rotator cuff repair. 2.Right shoulder arthroscopic SLAP tear debridement with biceps tenotomy. 3.Right shoulder arthroscopic subacromial decompression. Anesthesia: General. Fluids: Per Anesthesia record. Estimated Blood Loss: 5 cc. Complications: None. Implants: 1.A 5.5 mm Arthrex corkscrew. 2.A 4.75 mm Arthrex SwiveLock. Indication Of Procedure: Alicia is a 70-year-old female who presented to my clinic with signs, symptom s, and MRI findings consistent with right shoulder rotator cuff tear and bicipital tenosynovitis. Th e patient had significant pain and difficulty with activities of daily living. I discussed with the patient at length risks and benefits associated with operative and nonoperative treatment, and she ex pressed understanding and elected to proceed with operative treatment. Description Of Procedure: After informed consent was obtained, the patient was identified in the pre operative holding area. The right upper extremity was marked. The patient was then taken to the PAC U where she underwent a right-sided interscalene block to her right upper extremity for postoperative pain control. She was then taken to the operating room, transferred to the operating table in supin e fashion, and placed under general anesthesia. She was then placed in the beach chair position with her extremities well padded. The right upper extremity was then prepped and draped in usual sterile fashion. A time-out was initiated. The correct patient and procedure were confirmed and identified . The patient did receive preoperative prophylactic antibiotics. A standard posterior portal was cr eated after injecting the shoulder joint with 30 cc of normal saline via the posterior portal positio n. A posterior portal was created and arthroscope was brought in via the posterior portal position. A standard anterior portal was then created and then under visualization, a cannula was placed. Kayla gnostic arthroscopy was performed. The patient was noted to have a type 2 SLAP tear with significant fraying of the superior labrum. An arthroscopic shaver was then used to perform a SLAP tear debride ment to smooth stable borders. There was significant fraying of the biceps tendon anchor as well as hyperemia of the biceps tendon consistent with significant bicipital tenosynovitis. The biceps tenot poonam was then performed using meniscal biters. The labrum was again debrided at the biceps tendon anc hor using arthroscopic shaver. Anterior and posterior labrums were found to be stable to probe with no significant tear. The subscapularis was also noted to be intact with no significant tearing. The re were no loose bodies found within the axillary pouch. No significant chondromalacia noted on the humeral head. The patient was noted to have a full-thickness tear of the anterior supraspinatus. It was noted intra-articularly via arthroscopy. A standard lateral portal was created and obturator wa s brought into the shoulder joint consistent with a full-thickness tear. The undersurface of the rot ator cuff tear was then debrided using an arthroscopic shaver. The arthroscope was then brought to t he subacromial space and a subacromial bursectomy was performed using the arthroscopic shaver. The f ull-thickness rotator cuff tear was then identified. Again, it was reducible using 2-0 pituitary gra sper. The greater tuberosity was then debrided to a bleeding bony bed to aid with healing of the rep air. A single 5.5 mm Arthrex corkscrew was placed, which was double loaded. The sutures were then p assed through the rotator cuff tear in anterior to posterior fashion and horizontal mattress fashion. They were tied for good overall medial row fixation. The sutures were then placed in crisscross fa shion to 2 lateral row anchors using 4.75 mm Arthrex corkscrews to complete the rotator cuff repair. There was good overall repair and reduction of the rotator cuff onto the greater tuberosity. The re maining sutures were then cut. The undersurface of the acromion was then debrided using radiofrequen cy ablator and arthroscopic shaver. The patient did have some fraying of the coracoacromial ligament consistent with significant impingement syndrome. The subacromial decompression and acromioplasty w ere performed using a radiofrequency ablator as well as an arthroscopic jorge luis. Arthroscopic instrumen ts were then removed without complication. The wounds were then irrigated thoroughly with normal kati ine. Subcutaneous tissue was approximated using a 2-0 Vicryl and portals were approximated using a 3 -0 Monocryl. Sterile dressings were applied. The patient was awakened and transferred to PACU in st able condition. Postoperative Plan: The patient will be nonweightbearing of her right upper extremity, will be in a shoulder immobilizer, and will begin physical therapy per medium rotator cuff repair protocol 2 weeks postoperatively. CATHY/MARTY Voice ID: [id number] Report ID: [id number]
== END 2020-08-21 13:50 | disposition home or self-care (01) ==
LOC: OR 05:48
PROVIDERS: ATTEND Orthopaedic Surgery Sports Medicine
PROC: 0RNJ4ZZ Release Right Shoulder Joint, Percutaneous Endoscopic Approach (ICD-10-PCS; 2020-08-21)
PROC: 0LN10ZZ Release Right Shoulder Tendon, Open Approach (ICD-10-PCS; 2020-08-21)
PROC: 0LQ14ZZ Repair Right Shoulder Tendon, Percutaneous Endoscopic Approach (ICD-10-PCS; principal; 2020-08-21 07:30)
DX: M75.121 Complete rotator cuff tear or rupture of right shoulder, not specified as traumatic (principal); M75.21 Bicipital tendinitis, right shoulder; M75.41 Impingement syndrome of right shoulder; S43.431A Superior glenoid labrum lesion of right shoulder, initial encounter; E11.9 Type 2 diabetes mellitus without complications; I10 Essential (primary) hypertension; E78.5 Hyperlipidemia, unspecified; Z85.3 Personal history of malignant neoplasm of breast; Z79.84 Long term (current) use of oral hypoglycemic drugs; Z20.828 Contact with and (suspected) exposure to other viral communicable diseases; K76.0 Fatty (change of) liver, not elsewhere classified; R06.83 Snoring
CPT/HCPCS: 85025; 80048; 36415; 85610; 82947 ×2; 85730; 71046; 73020; 29827; 29826; 23405; U0002; J2704; J0171; J1200; J2370; J2250; J3010; J1100; J2175; J2795; J0690; J7120; J7030; J2405

== ENCOUNTER 2023-09-23 09:50 | Day surgery (SDC) | payer OTHER, MEDICARE ==
[2023-09-20 10:35] LABS: Potassium 4.1 mEq/L (3.5-5.1)
[2023-09-23] MEDS ORDERED: FENTANYL CITR 100 MCG/2 ML ONE (11:13)
[2023-09-23] MEDS ORDERED: LIDOCAINE 2% MPF 5 ML VIAL ONE (11:13)
[2023-09-23] MEDS ORDERED: KETOROLAC 30 MG/ML INJ ONE (11:13)
[2023-09-23] MEDS ORDERED: propofoL 200 MG/20 ML VIAL IV ONE (11:13)
[2023-09-23] MEDS ORDERED: dexAMETHasone 4 MG/ML VIAL ONE (11:13)
[2023-09-23] MEDS ORDERED: ONDANSETRON 4 MG/2 ML VIAL ONE (11:13)
[2023-09-23] MEDS ORDERED: ROCURONIUM 50 MG/5 ML VIAL IV ONE (11:13)
[2023-09-23] MEDS: BUPIVACAINE 0.25% PF 30 ML VIAL ONE ×2 (11:32→12:09)
[2023-09-23] MEDS: NA CHLORIDE 0.9% 1,000 ML ONE ×3 (11:32→12:53)
[2023-09-23] MEDS: CEFAZOLIN SODIUM 2 GM/VIAL ONE ×2 (11:32→11:44)
[2023-09-23] MEDS ORDERED: MIDAZOLAM HCL 2 MG/2 ML INJ ONE (11:37)
[2023-09-23] MEDS ORDERED: EPINEPHrine 1 MG/10 ML SYR ONE (12:15)
[2023-09-23] MEDS ORDERED: EPINEPHRINE 1 MG/ML VIAL ONE (12:15)
[2023-09-23] MEDS ORDERED: dexAMETHasone 10 MG/ML VIAL ONE ×3 (12:17→12:21)
[2023-09-23] MEDS ORDERED: BUPIVACAINE 0.25% PF 30 ML VIAL ONE (12:21)
[2023-09-23] MEDS ORDERED: NA CHLORIDE 0.9% 1,000 ML ONE (12:24)
--- NOTE | 2023-09-23 12:48 | P.OP ---
Preoperative diagnosis: Epigastric Ventral Hernia Postoperative diagnosis: Epigastric Ventral Hernia Primary procedure: Laparoscopic Ventral Henria Repair with mesh Anesthesia: GETA + Local Estimated blood loss: <2cc Specimen: none Findings: 1.5cm epigastric incarcerated fat containing hernia Complications: None Implants: Bard ventralite ST mesh 11.4cm round, sorbafix tacks x 45 Transferred to: Recovery Room Condition: Good
[2023-09-23] MEDS: HYDROMORPHONE HCL 1 MG/ML INJ ONE ×2 (13:39→14:07)
[2023-09-23 14:12] VITALS: O2SAT 96
[2023-09-23 15:36] VITALS: BP 137/67; TEMP 97.5
--- NOTE | 2023-09-23 15:46 | OP ---
Date of Procedure: 09/23/2023 Surgeon: Harrison Jang MD, Preoperative Diagnosis: Epigastric ventral hernia. Postoperative Diagnosis: Epigastric ventral hernia. Procedure Performed: Laparoscopic ventral hernia repair with mesh. Anesthesia: General endotracheal plus local with 0.25% Marcaine. Estimated Blood Loss: 2 cc. Specimen: None. Findings: A 1.5 cm epigastric incarcerated omental fat containing hernia noted. Complications: None. Implants: Bard Ventralight ST mesh with Echo Positioning System 11.4 cm round mesh utilized and Sorb aFix absorbable fixation tacks x45. Disposition: Patient transferred to recovery room in good condition. Procedure In Detail: After informed consent was obtained, patient was brought to the operating room, prepped and draped in the usual sterile fashion. After adequate anesthesia was achieved, I made a l eft upper quadrant incision down through subcutaneous tissues. A 5 mm 0-degree optical trocar was in troduced in the abdomen without evidence of complication. Insufflation was obtained at 15 mmHg at th is time. There was no injury to vital structures upon entry into the abdomen. One additional trocar was placed, one in the left lower to mid abdomen. There was a 12 mm trocar placed under direct visu alization without evidence of complication. At this point, the LigaSure device was used to take down midline adhesions from the periumbilical region to allow for visualization of the right upper quadra nt and the epigastric region. I then dissected down all the scar tissue from the anterior abdominal wall ultimately exposing an epigastric ventral hernia. This had incarcerated adipose tissue from the omentum which was taken down circumferentially using the LigaSure device. Ultimately, it was remove d at this point without any injury. There was no bleeding or hemostatic measures required beyond the LigaSure. I then inspected the hernia defect and found it to be approximately 1.5 cm. At this poin t, I then brought the Endo stitch with 0 V-Loc suture and sewed the hernia defect closed, imbricating the hernia sac, at this point. I then brought in a Bard Ventralight ST 11.4 cm round mesh deployed in the central position of the epigastric hernia and then secured to the anterior abdominal wall usin g a double crown orientation of SorbaFix absorbable fixation tacks. 45 tacks were utilized. At this point, the balloon deployment system had been completely removed, found to be intact on the back tab le. No hemostatic measures were required. I then turned my attention to the left lower quadrant tro car, closed the trocar site using a Kevon-Gerry suture passer with an 0 Vicryl interrupted fashio n with good approximation of tissues. The abdomen was completely desufflated under direct vision wit hout evidence of complication. The remaining trocars were removed. All skin incisions were then cop examiner iously irrigated and closed with a 4-0 Monocryl in a running fashion. Dermabond was placed over top. The patient tolerated the procedure without evidence of complication and transferred to PACU in goo d condition. All counts were correct at the end of the case. TOD/MARTY Voice ID: [id number] Report ID: [id number]
== END 2023-09-23 15:20 | disposition home or self-care (01) ==
LOC: OR 09:50
PROVIDERS: ATTEND Surgery
PROC: 0WUF4JZ Supplement Abdominal Wall with Synthetic Substitute, Percutaneous Endoscopic Approach (ICD-10-PCS; principal; 2023-09-23 12:45)
DX: K43.9 Ventral hernia without obstruction or gangrene (principal)
CPT/HCPCS: 80048; 36415; 82947 ×2; 49591; J2704; J1100 ×2; J2001; J2250; J3010; J0171; J1170; J2405; J7030 ×2; C1781